=== PATIENT | female | born 1945 | race Caucasian/White ===

== ENCOUNTER → 2017-12-24 | Outpatient (CLI) | payer MEDICARE ==
[2016-11-03 11:28] VITALS: BMI 35.3
[~2017-12-24] MED LIST: ASPI81TA94 PO; CEPH500T7 PO; DOCU-416 PO; GEMF600T89 PO; HYDR-4309 PO; IBAN150T6 PO; IBUP600T22 PO; LEVO50 PO; SULF-198 PO; TAMS0.4C25 PO
--- NOTE | 2017-12-24 10:41 | RADIOLOGY IMAGING REPORT ---
FACILITY: [facility] [place] PATIENT NAME: Mary Wilkes : 1945 MR: [id number] V: [id number] EXAM DATE: ORDERING PHYSICIAN: ANAHY PERRY TECHNOLOGIST: [place] [facility] [place] Mary Wilkes : 1945 Visit/Account:[id number] Date of Sevice: 12/24/2017 ABDOMEN PELVIS ESWL CYSTO W/O HISTORY: Kidney stone follow-up TECHNIQUE: Axial images acquired through the abdomen/pelvis. Coronal and sagittal reformatting also performed. No IV contrast administered. Dose Lowering Technique One of the following dose optimization techniques was utilized in the performance of this exam: Autom ated exposure control; adjustment of the mA and/or kV according to the patient's size; or use of an i terative reconstruction technique. Specific details can be referenced in the facility's radiology C T exam operational policy. COMPARISON: January 09, 2017 FINDINGS: Visualized lung bases: Negative. Hepatobiliary: Negative. Spleen: Negative. Adrenals: Negative. Pancreas: Negative. Kidneys ureters and bladder: There are two punctate calcifications lower pole calyces of the right ki dney measuring 1 to 2 mm. No evidence of hydronephrosis or hydroureter. No ureteral calcifications are identified Genitalia: Negative. GI: There Is a tiny hiatal hernia. Again noted is diverticulosis of the colon although no CT eviden ce of acute diverticulitis Vessels/spaces/nodes: Minimal vascular calcifications are present Bones/soft tissues: There Is a small umbilical hernia containing fat. Spondylotic changes lumbar spine. Old mild compression fracture T12 appears stable Additional findings: None pertinent. IMPRESSION: There are two punctate calcination occasions of the lower pole calyces of the right kidney measuring 1 to 2 mm each No evidence of hydronephrosis or hydroureter or ureteral calcifications Tiny hiatal hernia and small umbilical hernia containing fat Colonic diverticulosis Report Dictated By: Jeanine Jimenez MD at 12/24/2017 10:19 AM Report E-Signed By: Jeanine Jimenez MD at 12/24/2017 10:37 AM WSN:[email or web address]
== END ==
LOC: CT 01:08
PROVIDERS: ATTEND Urology
DX: N20.0 Calculus of kidney (principal); K44.9 Diaphragmatic hernia without obstruction or gangrene; K57.30 Diverticulosis of large intestine without perforation or abscess without bleeding
CPT/HCPCS: 74176

== ENCOUNTER 2018-01-23 01:55 | Day surgery (SDC) | payer MEDICARE ==
[2016-11-03 11:28] VITALS: Ht 162.6 cm; Wt 86.6 kg
[~2018-01-23] VITALS: Ht 162.6 cm; Wt 86.6 kg
[2018-01-23] MEDS ORDERED: PROPOFOL EMUL(*) 10MG/ML 20 ML 20 ML ONE ×2 (10:45→12:57)
[2018-01-23 11:35] VITALS: BP 133/89
[2018-01-23] MEDS ORDERED: NORMOSOL R SOLN(*) 1000 ML BAG 1,000 ML IV PRN (12:00)
[2018-01-23] MEDS ORDERED: LIDOCAINE/SOD BICARB 8.4% SYR ID ONE (12:00)
[2018-01-23 13:18] VITALS: BP 113/79
[2018-01-23 13:30] VITALS: BP 124/88
[2018-01-23 13:41] VITALS: BP 130/93
[2018-01-23 13:48] VITALS: BP 120/70
== END 2018-01-23 14:00 | disposition home or self-care (01) ==
LOC: OR 01:55
PROVIDERS: ATTEND Family Medicine
DX: Z12.11 Encounter for screening for malignant neoplasm of colon (principal); D12.0 Benign neoplasm of cecum; K57.30 Diverticulosis of large intestine without perforation or abscess without bleeding; Z86.010 Personal history of colon polyps
CPT/HCPCS: 00811; 45380; 88305; J2704

== ENCOUNTER → 2018-07-25 | Outpatient (CLI) | payer MEDICARE ==
[2016-11-03 11:28] VITALS: BMI 35.3
[~2018-07-25] MED LIST changes: -HYDR-4309 PO; +HYDR-653 PO
--- NOTE | 2018-07-25 10:11 | RADIOLOGY IMAGING REPORT ---
FACILITY: [facility] [place] PATIENT NAME: Mary Wilkes : 1945 MR: [id number] V: [id number] EXAM DATE: ORDERING PHYSICIAN: ANAHY PERRY TECHNOLOGIST: Location: [facility] Patient: Mary Wilkes : 1945 Visit/Account:[id number] Date of Sevice: 07/25/2018 CT ABDOMEN PELVIS W/O CON HISTORY: Kidney stones TECHNIQUE: Axial images acquired through the abdomen/pelvis. Coronal and sagittal reformatting also performed. No IV contrast administered.Dose Lowering Technique One of the following dose optimization techniques was utilized in the performance of this exam: Autom ated exposure control; adjustment of the mA and/or kV according to the patient's size; or use of an i terative reconstruction technique. Specific details can be referenced in the facility's radiology C T exam operational policy. COMPARISON: December 24, 2017 FINDINGS: Visualized lung bases: Negative. Hepatobiliary: Negative. Spleen: Negative. Adrenals: Negative. Pancreas: Negative. Kidneys ureters and bladder: There are two separate small 1 to 2 mm nonobstructing calculi lower pole calyces of the right kidney that appears stable. No evidence of left-sided nephrolithiasis. . The re is a small 2 mm calcification right-sided the pelvis best seen on image 345 of series 5 which was present on the prior CT from October 30, 2016 and not likely within the right ureter although since ureter s are not opacified with contrast this cannot be determined with complete certainty. There is no lana dence of hydronephrosis or hydroureter. 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 GI: There is diverticulosis seen throughout the colon although no CT evidence of acute diverticuliti s. The appendix is visualized and does not appear inflamed . A small hiatal hernia Vessels/spaces/nodes: Negative. Bones/soft tissues: There is a small umbilical hernia containing fat. There are spondylotic changes of the lumbar spine Additional findings: None pertinent. IMPRESSION: There are two small 1 to 2 mm nonobstructing calculi lower pole calyces of the right kidney that appe ars stable There is a small 2 mm calcination right side of the pelvis as described above which was present on a prior CT from October 30, 2016 is not likely within the right ureter although since ureters are not opacif ied with contrast this cannot be determined with complete certainty. 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
== END ==
LOC: CT 00:36
PROVIDERS: ATTEND Urology
DX: N20.0 Calculus of kidney (principal); K44.9 Diaphragmatic hernia without obstruction or gangrene; K57.30 Diverticulosis of large intestine without perforation or abscess without bleeding
CPT/HCPCS: 74176

== ENCOUNTER 2018-12-06 09:12 | Emergency (ER) | payer MEDICARE ==
[2016-11-03 11:28] VITALS: Wt 89.8 kg
--- NOTE | 2018-12-06 09:27 | ER Report ---
History and Physical Time Seen By MD: 09:26 Hx. of Stated Complaint: Pt. thinks she has a blood clot in her left leg. Recent trip to [place], rode a bus for 3 days and that's when symptoms started. Pain behind her knee 12/01. History of blood clot in the same leg 20 years ago. HPI/ROS CHIEF COMPLAINT: Lower extremity pain HISTORY OF PRESENT ILLNESS: Patient is a 73-year-old female who presents to the emergency department for evaluation of possible DVT to her left lower extremity. She denies any chest pain or shortness of breath. She recently was on a trip to [place] and was confined on the bus for many hours. She states she's feeling pain to the back popliteal area which is similar to her prior history of DVT. She denies any abdominal pain or nausea she denies fevers or chills or cough. Patient is currently not on any anticoagulation type medications. REVIEW OF SYSTEMS: Constitutional: No fever, no chills. Eyes: No discharge. ENT: No sore throat. Cardiovascular: No chest pain, no palpitations. Respiratory: No cough, no shortness of breath. Gastrointestinal: No abdominal pain, no vomiting. Genitourinary: No hematuria. Musculoskeletal: Left lower extremity pain Skin: No rashes. Neurological: No headache. Allergies: Coded Allergies: adhesive tape (Verified Allergy, Severe, BLISTERS, 12/06/18) cephalexin (Verified Allergy, Severe, LIP SORES, DIARRHEA, LOSS OF APPETI TE, MOUTH SORES, 12/06/18) iodine (Verified Allergy, Mild, 12/06/18) codeine (Verified Allergy, Unknown, 12/06/18) shellfish derived (Verified Allergy, Unknown, 12/06/18) Home Meds Reported Medications Ibuprofen (IBUPROFEN) 600 Mg Tablet, 1 TAB PO Q6H PRN for PAIN, #20 TAB 12/03/16 Aspirin (ASPIRIN) 81 Mg Tab.chew, 81 MG PO QDAY, TAB.CHEW 10/30/16 Levothyroxine Sodium (Synthroid) 0.05 Mg Tab, 75 MCG PO QDAY 10/21/06 Past Medical/Surgical History Prior history of DVT approximately 20 years ago Hx Smoking: No Smoking Status: Never Smoker Exposure to Second Hand Smoke?: No Hx Substance Use Disorder: No Hx Alcohol Use: Yes Constitutional Vital Sign - Last 24 Hours 612/06/18 12/06/18 12/06/18 09:12 09:15 09:16 09:17 Temp 98.1 Pulse ??? 92 105 Resp 16 B/P (MAP) 155/104 155/104 (121) Pulse Ox 86 88 O2 Delivery Room Air 12/06/18 12/06/18 12/06/18 12/06/18 09:22 09:27 09:30 09:32 Pulse 78 73 90 Resp 38 19 15 B/P (MAP) 154/97 (116) Pulse Ox 91 95 90 12/06/18 12/06/18 12/06/18 12/06/18 09:37 09:42 09:47 09:52 Pulse 69 75 86 82 Resp 8 14 22 27 Pulse Ox 90 89 91 90 12/06/18 12/06/18 12/06/18 12/06/18 09:57 10:00 10:02 10:07 Pulse 73 87 73 Resp 25 29 13 B/P (MAP) 151/71 (97) Pulse Ox 94 94 90 12/06/18 12/06/18 12/06/18 12/06/18 10:12 10:17 10:22 10:27 Pulse 85 71 69 72 Resp 10 11 9 11 Pulse Ox 92 91 94 92 12/06/18 12/06/18 12/06/18 12/06/18 10:30 10:32 10:37 10:42 Pulse 77 75 78 Resp 9 16 8 B/P (MAP) 140/98 (112) Pulse Ox 92 94 92 12/06/18 12/06/18 12/06/18 12/06/18 10:47 10:52 10:57 11:00 Pulse 80 75 68 Resp 11 13 4 B/P (MAP) 143/90 (107) Pulse Ox 93 91 95 12/06/18 11:02 Pulse 72 Resp 13 Pulse Ox 94 Physical Exam General/Constitutional: Patient is awake, alert, nontoxic and in no acute respiratory distress. Head: Normocephalic and atraumatic. Eyes: Conjunctival clear, Sclera are clear and anicteric. Ears:External canals are clear. Tympanic membranes are clear with normal land brush and light reflex. Nares: No rhinorrhea or bleeding. Turbinates are pink and moist. Oropharyngeal: Mucous membranes are moist. Neck: Supple, no adenopathy. Cardiovascular: Heart is regular rate and rhythm without audible murmurs, rubs or gallops. Pulmonary: Lungs are clear to auscultation bilaterally. There are no wheezes, rales, or rhonchi. Chest rise is symmetrical Abdomen: Soft, nontender, no guarding or peritoneal signs. Extremities: No gross deformities, No peripheral cyanosis. Able to move all 4 extremities. Neuro: Alert and oriented X3, Skin: No rashes, skin is warm dry and well perfused. Medical Decision Making Data Points Result Diagram: 12/06/18 0933 12/06/18 0933 Laboratory Hematology Test 12/06/18 09:33 Red Blood Count 5.54 M/uL (4.17-5.56) Mean Corpuscular Volume 84.5 fL (80.0-96.0) Mean Corpuscular Hemoglobin 28.2 pg (26.0-33.0) Mean Corpuscular Hemoglobin Concent 33.4 g/dL (32.0-36.0) Red Cell Distribution Width 15.0 % (11.5-14.5) Mean Platelet Volume 8.5 fL (7.2-11.1) Neutrophils (%) (Auto) 62.4 % (39.4-72.5) Lymphocytes (%) (Auto) 26.5 % (17.6-49.6) Monocytes (%) (Auto) 7.7 % (4.1-12.4) Eosinophils (%) (Auto) 2.4 % (0.4-6.7) Basophils (%) (Auto) 1.0 % (0.3-1.4) Nucleated RBC Relative Count (auto) 0.0 /100WBC Neutrophils # (Auto) 4.2 K/uL (2.0-7.4) Lymphocytes # (Auto) 1.8 K/uL (1.3-3.6) Monocytes # (Auto) 0.5 K/uL (0.3-1.0) Eosinophils # (Auto) 0.2 K/uL (0.0-0.5) Basophils # (Auto) 0.1 K/uL (0.0-0.1) Nucleated RBC Absolute Count (auto) 0.00 K/uL Prothrombin Time 12.9 seconds (12.0-14.4) Prothromb Time International Ratio 0.97 Activated Partial Thromboplast Time 31 seconds (23-35) Sodium Level 142 mmol/L (137-145) Potassium Level 3.9 mmol/L (3.5-5.0) Chloride Level 108 mmol/L (98-107) Carbon Dioxide Level 24 mmol/L (22-31) Blood Urea Nitrogen 17 mg/dl (7-18) Creatinine 0.80 mg/dl (0.52-1.04) Glomerular Filtration Rate Calc > 60.0 Random Glucose 108 mg/dl (75-110) Calcium Level 9.0 mg/dl (8.4-10.2) Total Bilirubin 1.0 mg/dl (0.2-1.3) Aspartate Amino Transf (AST/SGOT) 27 U/L (0-35) Alanine Aminotransferase (ALT/SGPT) 32 U/L (0-56) Alkaline Phosphatase 84 U/L (0-126) Troponin I < 0.012 ng/ml B-Type Natriuretic Peptide 50 pg/ml (0-100) Total Protein 7.3 g/dl (6.3-8.2) Albumin 3.9 g/dl (3.5-5.0) Chemistry Test 12/06/18 09:33 White Blood Count 6.8 k/uL (4.5-11.0) Red Blood Count 5.54 M/uL (4.17-5.56) Hemoglobin 15.6 g/dL (12.0-16.0) Hematocrit 46.8 % (34.0-47.0) Mean Corpuscular Volume 84.5 fL (80.0-96.0) Mean Corpuscular Hemoglobin 28.2 pg (26.0-33.0) Mean Corpuscular Hemoglobin Concent 33.4 g/dL (32.0-36.0) Red Cell Distribution Width 15.0 % (11.5-14.5) Platelet Count 240 K/uL (150-450) Mean Platelet Volume 8.5 fL (7.2-11.1) Neutrophils (%) (Auto) 62.4 % (39.4-72.5) Lymphocytes (%) (Auto) 26.5 % (17.6-49.6) Monocytes (%) (Auto) 7.7 % (4.1-12.4) Eosinophils (%) (Auto) 2.4 % (0.4-6.7) Basophils (%) (Auto) 1.0 % (0.3-1.4) Nucleated RBC Relative Count (auto) 0.0 /100WBC Neutrophils # (Auto) 4.2 K/uL (2.0-7.4) Lymphocytes # (Auto) 1.8 K/uL (1.3-3.6) Monocytes # (Auto) 0.5 K/uL (0.3-1.0) Eosinophils # (Auto) 0.2 K/uL (0.0-0.5) Basophils # (Auto) 0.1 K/uL (0.0-0.1) Nucleated RBC Absolute Count (auto) 0.00 K/uL Prothrombin Time 12.9 seconds (12.0-14.4) Prothromb Time International Ratio 0.97 Activated Partial Thromboplast Time 31 seconds (23-35) Glomerular Filtration Rate Calc > 60.0 Calcium Level 9.0 mg/dl (8.4-10.2) Total Bilirubin 1.0 mg/dl (0.2-1.3) Aspartate Amino Transf (AST/SGOT) 27 U/L (0-35) Alanine Aminotransferase (ALT/SGPT) 32 U/L (0-56) Alkaline Phosphatase 84 U/L (0-126) Troponin I < 0.012 ng/ml B-Type Natriuretic Peptide 50 pg/ml (0-100) Total Protein 7.3 g/dl (6.3-8.2) Albumin 3.9 g/dl (3.5-5.0) Coagulation Test 12/06/18 09:33 Prothrombin Time 12.9 seconds Prothromb Time International Ratio 0.97 Activated Partial Thromboplast Time 31 seconds EKG/Imaging EKG Interpretation EKG shows sinus rhythm with frequent PVCs patient actually did have a run of approximately 4 PVCs in a row. This is compared to an EKG from November 2016 which showed normal sinus rhythm with an incomplete right bundle branch block pattern. Monitor Interpretation: NSR with PVCs Imaging FACILITY: [facility] [place] PATIENT NAME: Mary Wilkes : 1945 MR: [id number] V: [id number] EXAM DATE: ORDERING PHYSICIAN: LINDA CARDENAS TECHNOLOGIST: [place] [facility] [facility] [place] : 1945 Visit/Account:[id number] Date of Sev: 12/06/2018 Left lower extremity venous Doppler duplex ultrasound scan. HISTORY: Left leg pain, prior DVT 20 years ago. COMPARISON: None. A color flow Doppler duplex ultrasound examination with spectral analysis was performed on the lower extremity. The common femoral vein, superficial femoral vein, and popliteal vein are normal. These vessels compress and augment normally. The upper portions of the trifurcation veins are unremarkable. Portions of the deep veins of the calf are obscured. No intraluminal filling defects are identified to suggest acute thrombus in the deep venous system. No abnormal fluid collections. A venous reflux study was not performed at this time. Note that Doppler ultrasound is somewhat insensitive below the knee. IMPRESSION: Negative for acute deep vein thrombosis. Report Dictated By: Chele Ramos MD at 12/06/2018 10:14 AM Report E-Signed By: Chele Ramos MD at 12/06/2018 10:16 AM WSN:[id number] ED Course/Re-evaluation ED Course 12/06/2018 9:51:11 am Plan at this time will be venous Doppler of the left lower extremity. Doppler ultrasound negative for DVT however patient did have a run of 3 PVCs in a row. We'll set up a 24-hour Holter monitor have her follow-up with her primary care provider and cardiology if necessary. Decision to Disposition Date: Dec 06, 2018 Decision to Disposition Time: 11:07 Depart Departure Latest Vital Signs Vital Signs Date Time Temp Pulse Resp B/P (MAP) Pulse Ox O2 Delivery O2 Flow Rate FiO2 12/06/18 11:02 72 13 94 12/06/18 11:00 143/90 (107) 12/06/18 09:15 98.1 Room Air Impression: Primary Impression: Leg pain Additional Impression: PVC (premature ventricular contraction) Condition: Improved Disposition: HOME OR SELF-CARE Referrals: ALY EID MD (PCP) 2 Weeks for results of holter monitor Departure Forms: ER Transition Record, Medications Reconciliation, Patient Portal Information Patient Instructions: Leg Pain (ED), Premature Ventricular Contractions (ED) Additional Instructions: Turned the Holter monitor after 24 hours to the hospital. Schedule a follow-up appointment with your primary care provider in one to 2 weeks ago mary review the results of Holter monitor. Problem Qualifiers Primary Impression: Leg pain Laterality: left Qualified Codes: M79.605 - Pain in left leg LINDA CARDENAS MD Dec 06, 2018 09:27
[2018-12-06] MEDS ORDERED: ASPIRIN 81 MG CHEW PO ONE (09:35)
[2018-12-06 09:47] LABS: PLATELET COUNT, AUTOMATED 240 K/uL (150-450)
[2018-12-06 09:55] LABS: INR 0.97
--- NOTE | 2018-12-06 10:18 | EKG ---
FACILITY: [facility] - [place] PATIENT NAME: BRYCE ROMANO : [id number] MR: [id number] V: [id number] EXAM DATE: ORDERING PHYSICIAN: LINDA CARDENAS TECHNOLOGIST: Test Reason : PVCs Blood Pressure : / mmHG Vent. Rate : 100 BPM Atrial Rate : 100 BPM P-R Int : 154 ms QRS Dur : 100 ms QT Int : 372 ms P-R-T Axes : 028 023 023 degrees QTc Int : 479 ms Sinus rhythm with frequent and consecutive premature ventricular complexes and fusion complexes Nonspecific ST abnormality Incomplete RBBB Abnormal ECG When compared with ECG of 03-DEC-2016 08:45, fusion complexes are now present premature ventricular complexes are now present Confirmed by Damon Lemus ([id number]) on 12/07/2018 7:46:29 AM Referred By: Confirmed By:Damon Beltran
--- NOTE | 2018-12-06 10:22 | RADIOLOGY IMAGING REPORT ---
FACILITY: [facility] [place] PATIENT NAME: Mary Wilkes : 1945 MR: [id number] V: [id number] EXAM DATE: ORDERING PHYSICIAN: LINDA CARDENAS TECHNOLOGIST: Location: [facility] [place] Patient: Mary Wilkes : 1945 Visit/Account:[id number] Date of Sevice: 12/06/2018 Left lower extremity venous Doppler duplex ultrasound scan. HISTORY: Left leg pain, prior DVT 20 years ago. COMPARISON: None. A color flow Doppler duplex ultrasound examination with spectral analysis was performed on the lower extremity. The common femoral vein, superficial femoral vein, and popliteal vein are normal. These ve ssels compress and augment normally. The upper portions of the trifurcation veins are unremarkable. P ortions of the deep veins of the calf are obscured. No intraluminal filling defects are identified to suggest acute thrombus in the deep venous system. No abnormal fluid collections. A venous reflux study was not performed at this time. Note that Doppler ultrasound is somewhat insensitive below the knee. IMPRESSION: Negative for acute deep vein thrombosis. Report Dictated By: Chele Ramos MD at 12/06/2018 10:14 AM Report E-Signed By: Chele Ramos MD at 12/06/2018 10:16 AM WSN:[id number]
[2018-12-06 11:00] VITALS: BP 143/90
--- NOTE | 2018-12-07 19:41 | RT HOLTER TEST ---
FACILITY: [facility] PATIENT NAME: BRYCE ROMANO : [id number] MR: [id number] V: [id number] EXAM DATE: ORDERING PHYSICIAN: LINDA CARDENAS TECHNOLOGIST: JENNIFER Hook-up date: 2018-12-06 11:24:00 Duration: 24:45:00 Test Indications: PVCs Medications: 336701 QRS complexes 25955 Ventricular ectopics which represent 9 % of total QRS comp. 54 Supraventricular ectopics which represent <1 % of total QRS comp. * Paced QRS complexes which represent % of total QRS comp. VENTRICULAR ECTOPY 69984 Isolated 7 Bigeminal Cycles 65 Couplets 28 Runs 89 Beats in Runs 5 Beats LONGEST at 145 BPM at 12:03:58 2018-12-06 3 Beats FASTEST at 156 BPM at 13:45:27 2018-12-06 SUPRAVENTRICULAR ECTOPY 41 Isolated 0 Couplets 1 Runs 13 Beats in Runs 13 Beats LONGEST at 154 BPM at 18:23:02 2018-12-06 13 Beats FASTEST at 154 BPM at 18:23:02 2018-12-06 HEART RATES 43 MIN at 04:46:55 2018-12-07 85 AVG 154 MAX at 18:23:04 2018-12-06 LONGEST RR 1.560 secs at 04:57:08 2018-12-07 S-T LEVELS Channel 1 -12.800 mm MIN at 11:24:00 2018-12-06 -12.800 mm MAX at 11:24:00 2018-12-06 Channel 2 -12.800 mm MIN at 11:24:00 2018-12-06 -12.800 mm MAX at 11:24:00 2018-12-06 Channel 3 -12.800 mm MIN at 11:24:00 2018-12-06 -12.800 mm MAX at 11:24:00 2018-12-06 Holter monitor reviewed. Maximum heart rate appears to be a supraventricular tachycardia (SVT) at 154 beats per minute (BPM). Minimum heart rate is sinus bradycardia at 43 BPM. The patient had several short runs of a wide complex tachycardia concer emilie for ventricular tachycardia but could be atrial fibrillation with aberrant conduction. There were many (07346) premature ventricular contract ions with bigeminy and quadrageminy noted at times. There were 41 supraventricular contractions with one 13 beat run of SVT. Confirmed by QAMAR COMBS ([id number]) on 12/07/2018 7:40:19 PM Referred By: Overread By: QAMAR COMBS
== END 2018-12-06 11:27 | disposition home or self-care (01) ==
LOC: ER 09:19
DX: M79.605 Pain in left leg (principal); I49.3 Ventricular premature depolarization
CPT/HCPCS: 83880; 84484; 85025; 85610; 85730; 93005; 93225; 93971; 99284; A9270; 82040; 82247; 82310; 82374; 82435; 82565; 82947; 84075; 84132; 84155; 84295; 84450; 84460; 84520; 93226